=== PATIENT | female | born 1970 | race Caucasian/White ===

== ENCOUNTER 2017-11-28 15:18 | Outpatient (CLI) | payer BC | END 2017-11-28 15:19 | disposition home or self-care (01) | LOC: BICMAMMO 15:18 | PROVIDERS: ATTEND Obstetrics & Gynecology | DX: Z12.31 Encounter for screening mammogram for malignant neoplasm of breast (principal) | CPT/HCPCS: 77063; 77067 ==

== ENCOUNTER 2017-12-12 09:12 | Outpatient (CLI) | payer BC | END 2017-12-12 09:13 | disposition home or self-care (01) | LOC: BICMAMMO 09:12 | PROVIDERS: ATTEND Obstetrics & Gynecology | DX: N63.20 Unspecified lump in the left breast, unspecified quadrant (principal) | CPT/HCPCS: G0279 ==

== ENCOUNTER → 2017-12-21 | Day surgery (SDC) | payer BC | LOC: BICULT 11:13 | PROVIDERS: ATTEND Obstetrics & Gynecology | PROC: 0HBU3ZX Excision of Left Breast, Percutaneous Approach, Diagnostic (ICD-10-PCS; principal; 2017-12-21) | DX: D24.2 Benign neoplasm of left breast (principal) | CPT/HCPCS: 19083; 88305 ==

== ENCOUNTER 2018-07-19 10:13 | Outpatient (CLI) | payer BC ==
--- NOTE | 2018-07-19 12:59 | ULT ---
RIGHT UPPER QUADRANT ULTRASOUND: Date: 07-19-18 Comparison: None. History: Abdominal distention. Technique: Multiplanar grayscale sonographic imaging of the right upper quadrant provided. FINDINGS: Imaged pancreas is grossly unremarkable. The distal body and tail are obscured by bowel gas. No focal liver lesion or intrahepatic biliary dilatation is seen. The common bile duct measures approximately 4 mm, within normal limits. Extensive shadowing is seen in the region of the gallbladder suggesting a gallbladder filled with mul tiple stones. The basic sciences dean reports a negative Khalil's sign. No gallbladder wall thickening or per icholecystic fluid. Right kidney measures 12.4 cm craniocaudal dimension and demonstrates no stone, hydronephrosis or mas s. IMPRESSION: Numerous gallstones fill the gallbladder. No sonographic evidence of acute cholecystitis or biliary d ilatation. POS: SJ
== END 2018-07-19 10:14 | disposition home or self-care (01) ==
LOC: SCSULT 10:13
PROVIDERS: ATTEND Internal Medicine Gastroenterology
DX: R14.0 Abdominal distension (gaseous) (principal); K80.20 Calculus of gallbladder without cholecystitis without obstruction; B96.81 Helicobacter pylori [H. pylori] as the cause of diseases classified elsewhere
CPT/HCPCS: 76705

== ENCOUNTER 2018-09-03 08:10 | Outpatient (CLI) | payer BC ==
[2018-09-03 09:45] LABS: BHCG - Serum Negative (NEGATIVE); Pregs Control Background? CLEAR/WHITE (CLR/WHITE); Pregs Control Bar Appear? YES (CONTROL BAR)
[2018-09-03 09:56] LABS: ALT (SGPT) 9 U/L (8-55); AST (SGOT) 16 U/L (5-34); Albumin 4.1 g/dL (3.5-5.0); Alkaline Phosphatase 81 U/L (40-150); Anion Gap 10 mmol/L (10-20); BUN (Urea Nitrogen) 12 mg/dL (7.0-18.7); Bilirubin, Direct 0.2 mg/dL (0.1-0.3); Bilirubin, Total 0.4 mg/dL (0.2-1.2); Calc. Creatinine Clearance 0 mL/min (70-130); Calcium 9.3 mg/dL (7.8-10.44); Carbon Dioxide 26 mmol/L (22-29); Chloride 104 mmol/L (98-107); Estimated GFR-MDRD Greater than 90; Glucose 97 mg/dL (70-105); Potassium 4.3 mmol/L (3.5-5.1); Protein, Total 7.1 g/dL (6.0-8.3); Sodium 136 mmol/L (136-145)
[2018-09-03 10:46] LABS: #Basophils 0.1 thou/uL (0.0-0.2); #Eosinphils 0.8 thou/uL (0.0-0.7); #Monocytes 0.7 thou/uL (0.11-0.59); #Neutrophils 3.8 thou/uL (1.40-6.50); %Basophils 1.2 % (0.0-1.0); %Eosinophils 10.5 % (0.0-10.0); %Lymphocytes 26.8 % (21.0-51.0); %Neutrophils 52.5 % (42.0-75.0); Hemoglobin 10.4 g/dL (12.0-16.0); Hypochromia SLIGHT = 6-15 cells (100X) (0-5/hpf); MDiff Complete? YES; Mean Corpuscular HGB CONC 30.8 g/dL (32.0-36.0); Mean Corpuscular Hemoglobin 23.1 pg (27.0-31.0); Mean Platelet Volume 8.7 fL (7.4-10.4); Microcytosis SLIGHT = 6-15 cells (100X) (0-5/hpf); Platelet Count 341 thou/uL (130-400); Polychromasia SLIGHT = 2-3 cells (100X) (0-2/hpf); RBC Distribution Width 13.9 % (11.5-14.5); Red Blood Cell (RBC) Count 4.51 mill/uL (4.20-5.40); White Blood Cell (WBC) Count 7.3 thou/uL (4.8-10.8)
== END 2018-09-03 08:11 | disposition home or self-care (01) ==
LOC: LABBT 08:10
PROVIDERS: ATTEND Surgery
DX: Z01.812 Encounter for preprocedural laboratory examination (principal); K80.20 Calculus of gallbladder without cholecystitis without obstruction
CPT/HCPCS: 80048; 80076; 84703; 85025

== ENCOUNTER 2018-09-04 06:05 | Day surgery (SDC) | payer BC ==
[2018-09-03 08:42] VITALS: BMI 29.2
[2018-09-04] MEDS ORDERED: Bupivacaine/Epinephrine 0.25% 30 ML VIAL ONE (07:01)
[2018-09-04] MEDS ORDERED: Famotidine/PF 20 mg/2ml Vial ONE (07:08)
[2018-09-04] MEDS ORDERED: Midazolam HCl 2 mg/2 ml Vial ONE (07:08)
[2018-09-04] MEDS ORDERED: Scopolamine 1.5 mg/72 hour Patch ONE (07:09)
[2018-09-04] MEDS ORDERED: CEFAZOLIN 2 GM/50 ML BAG ONE (07:09)
[2018-09-04] MEDS ORDERED: Fentanyl 100 MCG/2 ML VIAL ONE ×2 (07:14→08:26)
--- NOTE | 2018-09-04 16:02 | OP ---
DATE OF PROCEDURE: 09/04/2018 PREOPERATIVE DIAGNOSIS: Symptomatic gallstones. POSTOPERATIVE DIAGNOSIS: Symptomatic gallstones. PROCEDURE PERFORMED: Laparoscopic cholecystectomy. ANESTHESIA: General. ESTIMATED BLOOD LOSS: Minimal. COMPLICATION: None. SPECIMEN: Gallbladder. FINDINGS: Chronic cholecystitis. DESCRIPTION OF PROCEDURE: The patient was taken to the operating room and laid supine on the operating room table. After general anesthetic was obtained, the abdomen was prepped and draped in a sterile fashion. A curved incision was made below the umbilicus. Cautery was used to dissect down to the umbilical fascia. Umbilical fascia was incised and held up using a Noa. The abdominal cavity was entered using a Clarisa clamp. Holding stitch of Vicryl was placed on each side of the fascia. Carmona trocar was placed. High-flow pneumoperitoneum was obtained. An upper midline 5 mm port and 2 right upper quadrant 5 mm ports were placed under direct camera visualization. The gallbladder was retracted from the gallbladder fossa. The peritoneum of the gallbladder was opened anteriorly and posteriorly. The critical view triangle was seen showing only the cystic duct and cystic artery branching from medial to lateral. There were no other branching structures. Two clips were placed proximally on the cystic duct and one laterally. It was cut using laparoscopic scissors. The cystic artery was taken in the same way. Electrocautery was then used to dissect the gallbladder out of the gallbladder fossa. The gallbladder was placed in an Endo catch bag and brought out through the Carmona. There was no bleeding or bile in the liver bed. The cystic duct stump and cystic artery stump were intact, without evidence of extravasation or bleeding. All port sites were infiltrated using local anesthesia. All ports were removed under camera visualization. Pneumoperitoneum was let down. The Vicryl was used to close the fascial defect below the umbilicus. All incisions were irrigated and closed using 4-0 Monocryl and Dermabond. The patient was en route to Recovery in stable condition. All instrument counts, needle counts and lap counts were correct. Job ID: [id number]
== END 2018-09-04 11:20 | disposition home or self-care (01) ==
LOC: SDC 06:05
PROVIDERS: ATTEND Surgery
PROC: 0FT44ZZ Resection of Gallbladder, Percutaneous Endoscopic Approach (ICD-10-PCS; principal; 2018-09-04)
DX: K80.10 Calculus of gallbladder with chronic cholecystitis without obstruction (principal)
CPT/HCPCS: 88304; 96374; J0131; J2250; J3010; S0028

== ENCOUNTER 2019-03-11 14:39 | Outpatient (CLI) | payer BC ==
[2019-03-11 17:05] LABS: Hemoglobin 12.6 g/dL (12.0-16.0); Mean Corpuscular HGB CONC 32.4 g/dL (32.0-36.0); Mean Corpuscular Hemoglobin 26.4 pg (27.0-31.0); Mean Corpuscular Volume 81.4 fL (78.0-98.0); Mean Platelet Volume 8.8 fL (7.4-10.4); Platelet Count 322 thou/uL (130-400); RBC Distribution Width 19.3 % (11.5-14.5); Red Blood Cell (RBC) Count 4.76 mill/uL (4.20-5.40); White Blood Cell (WBC) Count 7.5 thou/uL (4.8-10.8)
== END 2019-03-11 14:40 | disposition home or self-care (01) ==
LOC: LABBT 14:39
PROVIDERS: ATTEND Obstetrics & Gynecology
DX: Z01.812 Encounter for preprocedural laboratory examination (principal); D25.9 Leiomyoma of uterus, unspecified; N92.0 Excessive and frequent menstruation with regular cycle
CPT/HCPCS: 85027; 86850; 86900; 86901

== ENCOUNTER 2019-03-12 06:03 | Day surgery (SDC) | payer BC ==
[2019-03-11 16:10] VITALS: BMI 29.3
--- NOTE | 2019-03-11 21:17 | HP ---
The patient is scheduled for surgery on 03/12. HISTORY OF PRESENT ILLNESS: Ms. Madden is a 49-year-old female G4, P3, A1, who has known history of uterine fibroids. She has been having increasingly heavier periods along with pelvic pain and discomfort, which have worsened over the past 6 months. She has tried Lysteda for menorrhagia with minimal improvement in her flow. She has had a benign endometrial biopsy in October 2018 for some irregular bleeding associated with the fibroids. She has now been having more abdominal and pelvic pain associated with the uterine fibroids and is now desiring definitive surgical therapy. PAST MEDICAL HISTORY: Negative. PAST SURGICAL HISTORY: Previous cholecystectomy. ALLERGIES: SHE HAS NO KNOWN DRUG ALLERGIES. FAMILY HISTORY: Hypertension in her mother and bladder cancer in her father. TAX ACCOUNTING MANAGER HISTORY: Recently, she had a Pap smear with low-grade BIN, HPV 16, evaluated approximately 3 months ago. CURRENT MEDICATIONS: As noted, Lysteda on her menstrual cycles and [id number] ibuprofen as needed for pain. PHYSICAL EXAMINATION: GENERAL: The patient's height is 5 feet 4 inches, weight 169 with a BMI of 29, blood pressure 112/64, pulse 76, respirations 18, O2 saturation on room air is 98%. HEENT: Within normal limits. CHEST: Clear to auscultation. HEART: Regular rate and rhythm. S1 and S2 heart sounds. No murmurs, rubs, or gallops. ABDOMEN: Soft, nontender. There is a palpable mass in her pelvis, approximately 16-week size, irregular, consistent with her uterine fibroids. PELVIC: Reveals the same. Vulva, vagina had no lesions. Cervix had no lesions. Uterus, 16-week size, irregular and tender. ASSESSMENT: This is a 49-year-old G4, P3, A1 with symptomatic 16-week uterine fibroids. She has tried Lysteda for menorrhagia, but also having increasing pain and also heavy flow and is desiring definitive surgical therapy. PLAN: Plan is to proceed with robotic total laparoscopic hysterectomy, bilateral salpingectomy, and removal of the specimen with the ExCITE procedure. We will assess ovaries at time of surgery. If any abnormalities or concerns exist at that time, then also plan for removal of the ovaries. Risks and benefits of procedure were discussed in detail. She is set for surgery on 03/12/2019. Job ID: [id number]
[2019-03-12] MEDS ORDERED: Fentanyl 100 MCG/2 ML VIAL ONE ×3 (06:33→10:44)
[2019-03-12 06:45] LABS: #Basophils 0.1 thou/uL (0.0-0.2); #Eosinphils 0.2 thou/uL (0.0-0.7); #Monocytes 0.6 thou/uL (0.11-0.59); #Neutrophils 3.4 thou/uL (1.40-6.50); %Basophils 1.2 % (0.0-1.0); %Eosinophils 3.1 % (0.0-10.0); %Monocytes 10.2 % (0.0-10.0); %Neutrophils 54.6 % (42.0-75.0); Hemoglobin 11.7 g/dL (12.0-16.0); Mean Corpuscular HGB CONC 32.1 g/dL (32.0-36.0); Mean Platelet Volume 8.7 fL (7.4-10.4); Platelet Count 298 thou/uL (130-400); RBC Distribution Width 19.2 % (11.5-14.5); White Blood Cell (WBC) Count 6.3 thou/uL (4.8-10.8)
[2019-03-12] MEDS ORDERED: Gabapentin 300 MG CAP ONE (06:46)
[2019-03-12] MEDS ORDERED: CeleCOXIB 100 MG CAP ONE (06:46)
[2019-03-12] MEDS ORDERED: Famotidine/PF 20 mg/2ml Vial ONE (06:46)
[2019-03-12] MEDS ORDERED: Bupivacaine HCl 0.5%/Epinephrine 1:200,000/PF 30 ml Vial ONE (06:48)
[2019-03-12] MEDS ORDERED: Midazolam HCl 2 mg/2 ml Vial ONE ×2 (07:22→07:28)
[2019-03-12 07:29] LABS: Pregnancy Test - Urine (BHCG) Negative (Negative)
[2019-03-12 07:30] LABS: Pregu Control Background? CLEAR/WHITE (CLR/WHITE); Pregu Control Bar Appear? YES (CONTROL BAR); Specific Gravity 1.003 (1.002-1.036)
[2019-03-12] MEDS ORDERED: Promethazine HCl 25 MG/ML VIAL SLOW IVP PRN (08:57)
[2019-03-12] MEDS ORDERED: Promethazine HCl 25 MG/ML VIAL IM PRN ×2 (08:57→10:21)
[2019-03-12] MEDS ORDERED: HYDROmorphone 2 MG/ML VIAL SLOW IVP PRN (08:57)
[2019-03-12] MEDS ORDERED: Meperidine HCl/PF 25 MG/ML VIAL SLOW IVP PRN (08:57)
[2019-03-12] MEDS ORDERED: HYDROmorphone 2 MG/ML VIAL ONE (09:52)
[2019-03-12] MEDS ORDERED: Ondansetron PF 4 MG/2 ML Vial IVP PRN (10:21)
[2019-03-12] MEDS ORDERED: diphenhydrAMINE 25 MG CAP PO PRN (10:21)
[2019-03-12] MEDS ORDERED: Bisacodyl 10 MG SUPP PR PRN (10:21)
[2019-03-12] MEDS ORDERED: Morphine 4 MG/ML VIAL SLOW IVP PRN (10:21)
[2019-03-12] MEDS ORDERED: Simethicone Chewable 80 MG TAB PO PRN (10:21)
[2019-03-12] MEDS ORDERED: traMADol HCl 50 MG TAB PO PRN (10:21)
[2019-03-12] MEDS ORDERED: Lactated Ringer's 1,000 ML IV SCH (10:30)
[2019-03-12] MEDS: Acetaminophen 1,000 MG in Premix Bag 1 BAG IVPB SCH ×3 (12:38→23:46)
[2019-03-12] MEDS: Ketorolac Tromethamine 30 MG/ML VIAL IVP SCH ×3 (12:40→23:45)
[2019-03-12] MEDS ORDERED: Glycopyrrolate 0.2 MG/ML 5 ML SYRINGE ONE (14:06)
[2019-03-12] MEDS ORDERED: Phenylephrine HCL 10 MG/ML VIAL ONE (14:06)
[2019-03-12] MEDS ORDERED: Lidocaine 1% PF 5 ML VIAL ONE (14:06)
[2019-03-12] MEDS ORDERED: Rocuronium Bromide 10 MG/ML (10ML VIAL) ONE (14:06)
[2019-03-12] MEDS ORDERED: Dexamethasone 20 MG/5 ML VIAL ONE (14:06)
[2019-03-12] MEDS ORDERED: PROPOFOL 200 MG/20 ML VIAL ONE (14:06)
[2019-03-12] MEDS ORDERED: Ondansetron PF 4 MG/2 ML Vial ONE (14:06)
--- NOTE | 2019-03-12 16:41 | OP ---
DATE OF PROCEDURE: 03/12/2019 PREOPERATIVE DIAGNOSES: 1. A 49-year-old female G4, P3, A1 with symptomatic 16 or 18-week uterine fibroids. 2. Menorrhagia. 3. Pelvic pain. 4. 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 POSTOPERATIVE DIAGNOSES: 1. A 49-year-old female G4, P3, A1 with symptomatic 16 or 18-week uterine fibroids. 2. Menorrhagia. 3. Pelvic pain. 4. 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 PROCEDURES PERFORMED: Robotic total laparoscopic hysterectomy with bilateral salpingectomy with ExCITE removal of the uterine specimen. CONSULTANT INTERNSHIP SURGEON: Ioana Duran MD ANESTHESIA: General endotracheal. ESTIMATED BLOOD LOSS: 100 mL. COMPLICATIONS: None. COUNTS: Correct x2. ANTIBIOTICS: 2 g Ancef, on-call to OR. PATHOLOGY: Will be the uterine tissue, cervix and bilateral fallopian tubes. FINDINGS: 1. Normal bilateral fallopian tubes and ovaries noted. 2. A 16 or 18-week size uterus with multiple dxbfp-nf-pvqygv size uterine fibroids, both intramural and subserosal noted. 3. Clear urine present in Matos catheter postprocedure with also bladder be in watertight to fluid distention greater than 300 mL postprocedure. 4. Bilateral ureteral peristalsis noted postprocedure. DISPOSITION: Recovery room, stable. DESCRIPTION OF PROCEDURE: The patient previously received informed consent in regard to surgery. She was taken back to the operating room, where she received a general endotracheal anesthetic agent without complications. She was placed in dorsal lithotomy position with the use of Moy stirrups and prepped and draped in usual sterile fashion. A side-arm speculum was placed in vagina. The anterior lip of the cervix was grasped with a single-tooth tenaculum. The uterus sounded to 12 cm and a size 12 cm MERRY uterine manipulator with a 4.0 cm cervical cup was placed in usual fashion. Tenaculum and speculum were removed. Attention was then turned to the abdomen, where perspective trocar sites were infiltrated with 0.5% Marcaine with epinephrine. A 12 mm supraumbilical incision was made. Veress needle was entered in the peritoneal cavity and the patient's pressure was noted to be less than 5 mmHg. The abdomen was insufflated with the patient's pressure of 15 approximately 5 L of carbon dioxide gas. The Veress needle was then removed and a size 12 mm trocar was placed through the incision site. The robotic laparoscope was then introduced through the trocar sleeve confirming proper entry. Additional bilateral lower quadrant 8 mm robotic trocars were placed under laparoscopic guidance along with the right upper quadrant community relations assistant port. The patient was placed in Trendelenburg position. The fascial incision in the supraumbilical region was extended to 2.5 cm, allowing for placement of the small Gasper O retractor with the small GelPOINT die cast operator device. The laparoscope trocar had been placed through the GelPOINT prior to attaching the cap of the GelPOINT. The laparoscope was then reintroduced through the trocar sleeve. The pelvis was inspected with the previously mentioned findings. The uterus was elevated by my community relations assistant and the posterior cul-de-sac was also inspected and then we felt there was a go for the robotic procedure. I broke scrub and then proceeded to carry out the surgery from the operative robotic console while my community relations assistant has remained at the bedside. The left fallopian tube was grasped by my community relations assistant and the mesosalpinx of the left fallopian tube was coagulated with bipolar fenestrated cautery, incised with monopolar scissors, and this tube was removed through the right upper quadrant port site. The left utero-ovarian ligament was then coagulated with bipolar fenestrated cautery and then this was transected with monopolar cautery. My community relations assistant continued to direct the large uterus away from the pelvic sidewall, which enabled me to continue coagulation and transection of the broad ligament until the left round ligament was reached. It was coagulated and transected. I then entered into the anterior cul-de-sac, dissecting the vesicouterine peritoneum in a layering technique dissecting the bladder past the cervical vaginal angle and also skeletonizing the large uterine vessels that were noted. This allowed for retraction of the iliac vessels and the ureter way lateral from the specimen. The internal cervical os region had been cleared and this was coagulated several times to secure some uterine vessels. The vesicouterine peritoneum continued to be dissected in layering technique both sharply and bluntly past the cervical vaginal angle, it was delineated by the cervical cup. We then proceeded to grasp the right fallopian tube by my community relations assistant. Mesosalpinx again was cauterized and transected. The tube was removed in the right upper quadrant port. The right utero-ovarian vessels were then coagulated and transected and serial coagulation of the broad ligament hugging close to a large uterus was carried out till the right round ligament was reached. It was coagulated and transected. The anterior leaf of the broad ligament was entered and the vesicouterine peritoneum again was incised and transected and then sharply dissected off the lower uterine segment past the cervical vaginal angles. The uterine vessels again were skeletonized. Again, the location of the right ureter was noted to be way lateral to the uterine vessel sites for coagulation and this had also been confirmed in the left ureter prior to coagulation of the vessels. The uterine vessels again were coagulated after skeletonizing them at the internal cervical os region. Due the bulking nature of the uterus, we decided to proceed first by the posterior colpotomy, the large uterus was then flexed anteriorly by my community relations assistant with a single-tooth tenaculum in the right upper quadrant port and then manipulating with the MERRY uterine manipulator. The posterior cuff field was visualized and the monopolar scissors were then coagulated on cut from 6 to 3 o'clock and then 6 to 7 o'clock position. It was difficult to see around the left side due to the position from the uterine fibroid. Therefore, we went anteriorly and completed from 12 to 3, which in securing the vessels as we did this with bipolar fenestrated cautery and then from 12 to 9 o'clock position. We had had some difficulty with pneumoperitoneum prior to this and this was trouble shot to be leaking from the uterine manipulator, which was fixed appropriately and then, we had resumed resumption of normal pneumoperitoneum in the 15 range. This also aided in excellent visualization for completion of the vaginal cuff incision. Once this had been accomplished, the uterine specimen was taken off the MERRY uterine manipulator and placed in the upper abdomen. The vaginal cuff was inspected and the area that was oozing were made hemostatic with bipolar fenestrated cautery. My monopolar scissor had been switched out for a needle flatbed driver. STRATAFIX suture had been brought into the operative field by my community relations assistant and I then proceeded to close the vaginal cuff in a full-thickness closure starting the right angle, then back to the left angle, and back towards the midline with good hemostasis confirmed. The excess suture string and the needle were then removed in the right upper quadrant community relations assistant port. We then brought the medium-size Aces bag that had been previously folded in accordion fashion and tagged with sutures that was up in the right upper quadrant. We brought that down into the pelvis with my bipolar fenestrated cautery device and the needle flatbed driver and the Sara grasper by my community relations assistant. We positioned the bag, this in the pelvis and then brought the uterine specimen overlying this. My community relations assistant then cut the stay sutures off the Aces bag, which open the bag and allowed for us to deliver the large uterus specimen into the Aces bag. I was able to grasp the suture that had been tied to the large bag and pulled it through the opposite ended loop that had been secured on the other rim of the bag, and this allowed for securing the specimen within the bag and then my community relations assistant grabbed with a Sara instrument, the tied suture through the loop pulling that up towards the GelPOINT near the umbilicus. Once we had gotten the bag with the specimen up through the GelPOINT opening, I broke off the operative console and then, we undocked the robot. The GelPOINT cap was removed and then we delivered the large Aces bag through the fascial defect in the supraumbilical region. The specimen remained inside the bag. The small Gasper O retractor then was placed with inside the Aces bag to protect the bag as we did the ExCITE portion of the procedure with the morcellation. The specimen was grasped repetitively with Jaxson thyroid clamps and with the C-incision technique with a scalpel, we delivered the large specimen in a morcellating fashion. Once the specimen had been all removed from the bag, the Aces bag was then removed from the fascial defect. It was noted to be intact. The Gasper O retractor, small retractor was also removed at this time. The fascia was then closed in the umbilical region with a running 0 Vicryl suture and good approximation of the fascia was confirmed. The remainder of the trocar sites were then closed with a 4-0 Monocryl suture in subcuticular stitch fashion with Dermabond. I then checked also the vaginal cuff with a sponge stick and hemostasis vaginally. The vaginal cuff was noted. The patient was then awakened from anesthesia and transferred to Recovery in stable condition. Job ID: [id number]
[2019-03-13 05:07] LABS: Hemoglobin 10.4 g/dL (12.0-16.0); Mean Corpuscular HGB CONC 32.8 g/dL (32.0-36.0); Mean Corpuscular Hemoglobin 26.5 pg (27.0-31.0); Mean Corpuscular Volume 80.6 fL (78.0-98.0); Mean Platelet Volume 8.8 fL (7.4-10.4); Platelet Count 269 thou/uL (130-400); RBC Distribution Width 18.8 % (11.5-14.5); Red Blood Cell (RBC) Count 3.93 mill/uL (4.20-5.40); White Blood Cell (WBC) Count 9.4 thou/uL (4.8-10.8)
[2019-03-13] MEDS: Acetaminophen 1,000 MG in Premix Bag 1 BAG IVPB SCH (05:26)
[2019-03-13] MEDS: Ketorolac Tromethamine 30 MG/ML VIAL IVP SCH (05:27)
[2019-03-13 07:39] VITALS: BP 128/79; TEMP 98.6
--- NOTE | 2019-03-13 07:52 | PDOC.EVN ---
Event Note - Event Note Event Note: Tolerating diet. Ambulating. Voiding. Good pain control.. O: 98.6 P75 128/79. HCT 31.7 ABDOMEN soft/non distended. Trochar sites clean and dry and intact. A/P:Post op day 1 from robotic tlh with EXCITE. Doing well. Discharge home. F/u 2 and 6 weeks. Pathology is pending.
--- NOTE | 2019-03-14 08:26 | DIS ---
DATE OF ADMISSION: 03/12/2019 DATE OF DISCHARGE: 03/13/2019 DIAGNOSES: 1. Symptomatic uterine fibroids. 2. Menorrhagia. 3. Pelvic pain. 4. Cervical dysplasia. PROCEDURES PERFORMED: Robotic total laparoscopic hysterectomy, bilateral salpingectomy with removal of uterus via ExCITE procedure. SUMMARY HOSPITAL COURSE: Ms. Madden is a 49-year-old female, who is G4, P3, A1 with symptomatic large 18 to 20 week uterine fibroids. She is having menorrhagia and pelvic pain. She has also had recent diagnosis cervical dysplasia with HPV 16 infection. She had desired definitive surgical therapy. She underwent an uncomplicated robotic hysterectomy with ExCITE for removal of the large uterine specimen. Postoperatively, she has done well. She was ambulating and voiding without difficulty on the evening of postop day #0. Vital signs have remained stable. Hematocrit 31.7% on postop day #1. She is tolerating regular diet, has good pain control and is afebrile. Plan is for discharge home. Follow up pathology when available. DISCHARGE MEDICATIONS: 1. Seha-ggn-fxnqntz Advil 400 mg q.4 hours as needed for pain. 2. She may also use Tylenol 1000 mg q.6 hours for breakthrough pain. 3. She was given tramadol 50 mg q.6 hours p.r.n. pain. FOLLOWUP: She is to follow up in 2 and 6 weeks. Job ID: [id number]
[2019-03-17] MEDS ORDERED: Ibuprofen 800 MG TAB PO SCH (21:00)
== END 2019-03-13 09:10 | disposition home or self-care (01) ==
LOC: SDC 06:03 → SURG A 10:21 → EDSTATUS 15:30 → SDC 03-13 09:10
PROVIDERS: ATTEND Obstetrics & Gynecology
PROC: 0UT94ZZ Resection of Uterus, Percutaneous Endoscopic Approach (ICD-10-PCS; principal; 2019-03-13)
PROC: 0UT74ZZ Resection of Bilateral Fallopian Tubes, Percutaneous Endoscopic Approach (ICD-10-PCS; principal; 2019-03-13)
DX: D25.9 Leiomyoma of uterus, unspecified (principal); N72 Inflammatory disease of cervix uteri; N92.0 Excessive and frequent menstruation with regular cycle; N87.9 Dysplasia of cervix uteri, unspecified
CPT/HCPCS: 36415; 81025; 85025; 85027; 86850; 86900; 86901; 88307; J0131; J0670; J0690; J1100; J1170; J1885; J2001; J2250; J2370; J2405; J2704; J3010; S0028

== ENCOUNTER 2019-05-10 12:14 | Outpatient (CLI) | payer BC ==
--- NOTE | 2019-05-14 06:47 | MMO ---
Bilateral MAMMO Bilat Screen DDI+SUMEET. CLINICAL HISTORY: Patient is 49 years old and is seen for screening. The patient has no family history of breast cancer. The patient has no personal history of cancer. The patient has a history of left Ultrasound Guided Core Biopsy in November,. VIEWS: The views performed were: bilateral craniocaudal with tomosynthesis and bilateral mediolateral oblique with tomosynthesis. FILMS COMPARED: The present examination has been compared to prior imaging studies performed at [facility] on 11/27/2014, 02/03/2016, 11/28/2017 and 12/12/2017. MAMMOGRAM FINDINGS: The breasts are heterogeneously dense, which could obscure a lesion on mammography. Finding 1: There is a stable mass with associated biopsy clip seen in the left breast at 1 o'clock. 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 Finding 2: There is a stable lobular mass with associated benign appearing calcifications seen in the posterior inner region of the left breast. There are no suspicious masses, suspicious calcifications, or new areas of architectural distortion. IMPRESSION: THERE IS NO MAMMOGRAPHIC EVIDENCE OF MALIGNANCY. A ROUTINE FOLLOW-UP MAMMOGRAM IN 1 YEAR IS RECOMMENDED. THE RESULTS OF THIS EXAM WERE SENT TO THE PATIENT. ACR BI-RADS Category 2 - Benign finding MAMMOGRAPHY NOTE: 1. A negative mammogram report should not delay a biopsy if a dominant of clinically suspicious mass is present. 2. Approximately 10% to 15% of breast cancers are not detected by mammography. 3. Adenosis and dense breasts may obscure an underlying neoplasm. Reported by: DOROTEO GEE MD Electonically Signed: [id number]
== END 2019-05-10 12:15 | disposition home or self-care (01) ==
LOC: BICMAMMO 12:14
PROVIDERS: ATTEND Obstetrics & Gynecology
DX: Z12.31 Encounter for screening mammogram for malignant neoplasm of breast (principal)
CPT/HCPCS: 77063; 77067

== ENCOUNTER 2020-06-04 11:53 | Outpatient (CLI) | payer BC ==
--- NOTE | 2020-06-04 14:30 | MMO ---
Bilateral MAMMO Bilat Screen DDI+SUMEET. CLINICAL HISTORY: Patient is 50 years old and is seen for screening. The patient has no family history of breast cancer. The patient has no personal history of cancer. The patient has a history of left Ultrasound Guided Core Biopsy in November,. VIEWS: The views performed were: bilateral craniocaudal with tomosynthesis and bilateral mediolateral oblique with tomosynthesis. FILMS COMPARED: The present examination has been compared to prior imaging studies performed at [facility] on 02/03/2016, 11/28/2017, 12/12/2017 and 05/10/2019. This study has been interpreted with the assistance of computer-aided detection. MAMMOGRAM FINDINGS: The breasts are heterogeneously dense, which could obscure a lesion on mammography. Left breast masses and biopsy clip are again seen. Benign calcifications are noted bilaterally. There are no suspicious masses, suspicious calcifications, or new areas of architectural distortion. IMPRESSION: THERE IS NO MAMMOGRAPHIC EVIDENCE OF MALIGNANCY. A ROUTINE FOLLOW-UP MAMMOGRAM IN 1 YEAR IS RECOMMENDED. THE RESULTS OF THIS EXAM WERE SENT TO THE PATIENT. ACR BI-RADS Category 2 - Benign finding MAMMOGRAPHY NOTE: 1. A negative mammogram report should not delay a biopsy if a dominant of clinically suspicious mass is present. 2. Approximately 10% to 15% of breast cancers are not detected by mammography. 3. Adenosis and dense breasts may obscure an underlying neoplasm. Reported by: LUIS ADHIKARI MD Electonically Signed: [id number]
== END 2020-06-04 11:54 | disposition home or self-care (01) ==
LOC: BICMAMMO 11:53
PROVIDERS: ATTEND Obstetrics & Gynecology
DX: Z12.31 Encounter for screening mammogram for malignant neoplasm of breast (principal)
CPT/HCPCS: 77063; 77067

== ENCOUNTER 2021-08-10 10:49 | Outpatient (CLI) | payer BC | END 2021-08-10 10:50 | disposition home or self-care (01) | LOC: BICMAMMO 10:49 | PROVIDERS: ATTEND Obstetrics & Gynecology | DX: Z12.31 Encounter for screening mammogram for malignant neoplasm of breast (principal) | CPT/HCPCS: 77063; 77067 ==